=== PATIENT | female | born 2005 | race Caucasian/White ===

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

== ENCOUNTER → 2025-01-02 09:12 | Outpatient (BNVA) | payer OTHER, SELFPAY | PROVIDERS: Family Provider Family Medicine; PCP Family Medicine; Visit Provider Nurse Practitioner Women's Health | DX: Z34.90 Encounter for supervision of normal pregnancy, unspecified, unspecified trimester (principal) | CPT/HCPCS: 84315 ==

== ENCOUNTER → 2025-01-30 09:42 | Outpatient (BNVA) | payer SELFPAY | PROVIDERS: Family Provider Family Medicine; PCP Family Medicine; Visit Provider Obstetrics & Gynecology | DX: Z36.9 Encounter for antenatal screening, unspecified (principal) | CPT/HCPCS: 76805 ==

== ENCOUNTER → 2025-02-06 10:24 | Outpatient (BNVA) | payer OTHER, SELFPAY | PROVIDERS: Family Provider Family Medicine; PCP Family Medicine; Visit Provider Obstetrics & Gynecology | DX: Z34.90 Encounter for supervision of normal pregnancy, unspecified, unspecified trimester (principal) | CPT/HCPCS: 84315 ==

== ENCOUNTER → 2025-02-27 13:15 | Outpatient (BNVA) | payer OTHER, SELFPAY | PROVIDERS: Family Provider Family Medicine; PCP Family Medicine; Visit Provider Nurse Practitioner Women's Health | DX: Z34.90 Encounter for supervision of normal pregnancy, unspecified, unspecified trimester (principal) | CPT/HCPCS: 84315 ==

== ENCOUNTER → 2025-03-27 10:26 | Outpatient (BNVA) | payer OTHER, SELFPAY | PROVIDERS: Family Provider Family Medicine; PCP Family Medicine; Visit Provider Obstetrics & Gynecology | DX: Z34.90 Encounter for supervision of normal pregnancy, unspecified, unspecified trimester (principal) | CPT/HCPCS: 82950; 84315; 85025 ==

== ENCOUNTER → 2025-04-10 14:23 | Outpatient (BNVA) | payer OTHER, SELFPAY | PROVIDERS: Family Provider Family Medicine; PCP Family Medicine; Visit Provider Obstetrics & Gynecology | DX: Z34.90 Encounter for supervision of normal pregnancy, unspecified, unspecified trimester (principal) | CPT/HCPCS: 84315 ==

== ENCOUNTER → 2025-04-24 09:05 | Outpatient (BNVA) | payer OTHER, SELFPAY | PROVIDERS: Family Provider Family Medicine; PCP Family Medicine; Visit Provider Obstetrics & Gynecology | DX: Z34.90 Encounter for supervision of normal pregnancy, unspecified, unspecified trimester (principal) | CPT/HCPCS: 84315 ==

== ENCOUNTER 2025-04-30 18:38 | Outpatient (CLI) | payer OTHER, SELFPAY ==
[2025-04-30 18:58] VITALS: BMI 25.3
[2025-04-30 19:06] VITALS: BP 128/75; PULSE 82
[2025-04-30 19:21] VITALS: BP 130/72; PULSE 90
[2025-04-30 19:39] VITALS: TEMP 35.7
[2025-04-30 19:40] VITALS: BP 130/72; PULSE 91; RESP 17; TEMP 36.1; O2SAT 98
== END 2025-04-30 19:42 | disposition home or self-care (01) ==
LOC: OPOB 18:42 → OBGYN 18:43
PROVIDERS: Family Provider Family Medicine; PCP Family Medicine; Visit Provider Obstetrics & Gynecology
DX: O36.8190 Decreased fetal movements, unspecified trimester, not applicable or unspecified (principal); Z3A.00 Weeks of gestation of pregnancy not specified
CPT/HCPCS: 59025; 99211

== ENCOUNTER → 2025-05-08 08:03 | Outpatient (BNVA) | payer OTHER, SELFPAY | PROVIDERS: Family Provider Family Medicine; PCP Family Medicine; Visit Provider Nurse Practitioner Women's Health | DX: Z34.90 Encounter for supervision of normal pregnancy, unspecified, unspecified trimester (principal) | CPT/HCPCS: 84315 ==

== ENCOUNTER 2025-05-17 19:00 | Inpatient (IN) | payer OTHER, SELFPAY ==
[2025-05-17] VITALS (67 sets, daily range): BP systolic 118–153; BP diastolic 63–93; PULSE 71–106; RESP 16–18; TEMP 36.2–37.1; O2SAT 100; BMI 26.2
[2025-05-17 09:17] LABS: Hematocrit 34.8 % (36-47); Hemoglobin 12.60 g/dL (12.4-14.8); Mean Corpuscular HGB Conc 36.2 g/dL (30-55); Mean Corpuscular Hemoglobin 31.7 pg (27-33); Mean Corpuscular Volume 87.7 fl (85-98); Nucleated Red Blood Cells % 0 %; Platelet Count 214 10^3/cmm (157-399); Red Blood Count 3.97 10^6/uL (3.85-5.65); White Blood Count 14.07 10^3/uL (4.5-13.0)
[2025-05-17] MEDS: penicillin g potassium 5,000,000 UNIT in sodium chloride 0.9% (plus) 100 ML 100 UNIT IV (09:38)
[2025-05-17] MEDS: PENICILLIN G POTASSIUM 2,500,000 UNIT/50 ML BAG 50 UNIT IV ×3 (13:07→22:20)
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
[2025-05-17] MEDS: oxytocin 30 UNIT/500 ML BAG IV (13:21)
[2025-05-17] MEDS: fentaNYL 50 mcg/mL INJ 2mL IVP (13:25)
[2025-05-17] MEDS: ROPivacaine premix 200 MG/100 ML PREMIX 13 MG EPIDURAL ×2 (14:45→22:23)
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
[2025-05-17] MEDS: ondansetron 2 mg/ML SDV 2 mL 4 MG IVP (15:56)
--- NOTE | 2025-05-17 23:19 | P.PCNOB_ITS ---
Delivery Note: Date of delivery: May 17, 2025 Pre-delivery diagnoses: 19-year-old 1 at 35 weeks estima alexander gestational age presenting with spontaneous rupture of membranes Post-delivery diagnoses: Status post vacuum-assisted vaginal delivery Procedure: Vacuum-assisted vaginal delivery Delivering Physician: Corky Spencer Estimated blood loss (mL): 150 Pre-Delivery Course: The patient presented to the hospital with spontaneous rupture of membranes. After waiting for about 7 hours she made some change but was still only 3 cm dilated. The decision was made to proceed with Pitocin. An epidural was placed. She then progressed to complete without difficulty. When the baby was complete and 0 station the patient began pushing. After pushing for about an hour, the began having significant decelerations. She then had persistent decelerations in the 60s and 70s that persisted over about 3-4 contractions. Specific decision was made to assist with the vacuum. The vacuum was used on 3 consecutive contractions. I used the Kiwi with a hard martinez. Each time the vacuum was placed the Kiwi handle was pumped up to the green zone. There were no pop-off's. I discussed with the parents the pros and cons of the vacuum including the risk of a subgaleal bleed. Delivery: DELIVERY: The patient progressed to complete without difficulty. She delivered a female with a weight of 5 pound 13 ounces with Apgars of 8, 8 with the assist of the vacuum.. The baby was delivered from the JOSE ENRIQUE position. The baby's mouth and nose were suctioned at the site of the perineum. The baby was then completely delivered and placed on the mother's abdomen. The cord was then clamped and cut. There was no nuchal cord. There was no meconium. The ashly centa and 3 vessel cord were delivered intact shortly thereafter. The perineum and vaginal vault were carefully examined. Lacerations were noted in the vaginal wall both in the posterior midline as well as extending onto the left vaginal wall. These continued to bleed and were reapproximated using 3-0 Vicryl in a separate [id number] stitches. Both the mother and the baby were in stable condition. Post-Delivery Status: Good History History History 1 Term 1 Miscarriages/Ectopic Living Children 1 A&P Assessment and plan 1. 35 weeks gestation of : I anticipate routine care. 2. Vacuum-assisted vaginal delivery: PDMP PDMP Reviewed: Not Reviewed Coding Level of Care Code Acute Code for Chg Fwd Diagnoses 35 weeks gestation of Z3A.35 Vacuum-assisted vaginal delivery Z37.9
[2025-05-18] VITALS (16 sets, daily range): BP systolic 118–142; BP diastolic 64–88; PULSE 69–113; RESP 16; TEMP 36.7–37.2
[2025-05-18] MEDS: benzocaine-menthol 78 gm Canister 1 SPRAY TOPICAL (06:36)
[2025-05-18] MEDS: PRENATAL VIT NO.130/IRON/FOLIC 1 EACH TABLET PO (06:37)
--- NOTE | 2025-05-18 10:49 | P.PN_ITS ---
SENIOR BUSINESS CONSULTANT Subjective 2 Subjective: Interval history: The patient has done well. Her bleeding has been within normal limits. Her pain is well-controlled. She is breast-feeding well. Labor: Station: 0 Amniotic Membrane Status: Ruptured Monitor Mode: External Contraction Pattern: Regular Vitals/I&O/Wt Last Vital Signs Temp 98.0 F 05/18/25 08:42 Pulse 74 05/18/25 08:42 Resp 16 05/18/25 08:42 BP 126/74 05/18/25 08:42 Pulse Ox 100 05/17/25 14:58 O2 Del Method Room Air 05/17/25 09:00 05/17/25 05/18/25 05/18/25 22:59 06:59 14:59 Intake Total 1217.001 / 1971.867 Balance 1217.001 / 1971.867 Weight last 48 hrs Weight 167 lb 8 oz Physical Exam 2 Narrative: The patient is alert. She appears comfortable. Her heart has a regular rate and rhythm with no murmurs appreciated. Lungs are clear to auscultation bilaterally. Her fundus is firm and below the umbilicus. Urinary Catheter Management: Hensley: Cath Placed During This Visit: yes Reason for Continuing Indwelling Catheter: Other Urinary Catheter Date of Insertion: 05/17/25 Urinary Catheter Time of Insertion: 15:15 Data 05/18/25 11:00 A&P Assessment and plan 1. 35 weeks gestation of : The patient is doing well. I anticipate she will have routine care. 2. Status post vacuum-assisted vaginal delivery: PDMP PDMP Reviewed: Not Reviewed Attestations 2 Medical Necessity Statement*: Routine care Coding Level of Care Code Acute Code for Chg Fwd Diagnoses 35 weeks gestation of Z3A.35 Status post vacuum-assisted vaginal delivery Z87.59
[2025-05-18 11:24] LABS: Hematocrit 27.6 % (36-47); Hemoglobin 10.00 g/dL (12.4-14.8); Mean Corpuscular HGB Conc 36.2 g/dL (30-55); Mean Corpuscular Hemoglobin 32.1 pg (27-33); Mean Corpuscular Volume 88.5 fl (85-98); Platelet Count 176 10^3/cmm (157-399); Red Blood Count 3.12 10^6/uL (3.85-5.65); White Blood Count 17.24 10^3/uL (4.5-13.0)
[2025-05-19] MEDS: PRENATAL VIT NO.130/IRON/FOLIC 1 EACH TABLET PO (05:16)
[2025-05-19 05:21] VITALS: BP 130/71; TEMP 36.7
--- NOTE | 2025-05-19 08:00 | ANE.PACU2 ---
Inpatient post-anesthesia follow up: Airway intact: Yes Vital signs: Temperature 97.7 F Pulse Rate 74 Respiratory Rate 15 Blood Pressure 116/71 Pulse Oximetry 98 Oxygen Delivery Me thod Room Air Oxygen Flow Rate Fraction of Inspir ed Oxygen Hydration adequate: Yes Nausea and vomiting: No Pain level: 1 Mental status: Baseline Epidural Start/End: Epidural Start Date: 05/17/25 Epidural Start Time: 14:35 Epidural End Date: 05/18/25 Epidural End Time: 02:52
--- NOTE | 2025-05-19 09:34 | PM.OBGYDC ---
Discharge Providers BI MANAGER Date of Admission: 05/17/25 19:00 Date of Discharge: 05/19/25 Attending Provider at Admission: Corky Spencer MD Attending Provider at Discharge: Corky Spencer MD Primary Care Provider: Thai Allison DO Diagnoses at Discharge Discharge Diagnosis 1. 35 weeks gestation of : 2. Status post vacuum-assisted vaginal delivery: Reason for Visit Reason for Visit: SROM Hospital Course Hospital Course The patient is a 19-year-old 1 who presented to the hospital with spontaneous rupture membranes. She is allowed to labor for about 6 hours. She made minimal progress and the decision was made to proceed with Pitocin augmentation. She then progressed to complete. Due to persisting bradycardia, the decision was made to assist with the vacuum. The baby then delivered quickly. The patient had an unremarkable delivery otherwise. Her course was unremarkable as well. Her bleeding was within normal limits. Her pain was well-controlled. Breast-feeding was initially difficult but she did much better prior to discharge. There were no further concerns. Information Peripartum Data: Infant Delivery Method: Vaginal Physical Exam Narrative: The patient is alert. She appears comfortable. Her heart has a regular rate and rhythm. Lungs are clear to auscultation bilaterally. Her fundus is firm and below the umbilicus. Urinary Catheter Management: Hensley: Cath Placed During This Visit: yes Reason for Continuing Indwelling Catheter: Other Urinary Catheter Date of Insertion: 05/17/25 Urinary Catheter Time of Insertion: 15:15 History History History 1 Term 1 Miscarriages/Ectopic Living Children 1 Discharge Data Studies Completed and Pending Laboratory Results WBC 17.24 10^3/uL (4.5-13.0) H 05/18/25 11:00 RBC 3.12 10^6/uL (3.85-5.65) L 05/18/25 11:00 Hgb 10.00 g/dL (12.4-14.8) L 05/18/25 11:00 Hct 27.6 % (36-47) L 05/18/25 11:00 MCV 88.5 fl (85-98) 05/18/25 11:00 MCH 32.1 pg (27-33) 05/18/25 11:00 MCHC 36.2 g/dL (30-55) 05/18/25 11:00 RDW 11.9 % (12.1-15.1) L 05/18/25 11:00 Plt Count 176 10^3/cmm (157-399) 05/18/25 11:00 MPV 10.5 fL (7.4-10.4) H 05/18/25 11:00 Neut % (Auto) 67.3 % 05/17/25 09:00 Lymph % (Auto) 23.7 % 05/17/25 09:00 Becker % (Auto) 5.6 % 05/17/25 09:00 Eos % (Auto) 0.8 % 05/17/25 09:00 Baso % (Auto) 0.4 % 05/17/25 09:00 Neut # (Auto) 9.47 10^3/uL (1.8-8.0) H 05/17/25 09:00 Lymph # (Auto) 3.3 10^3/uL (1.5-6.5) 05/17/25 09:00 Becker # (Auto) 0.8 10^3/uL (0.2-0.9) 05/17/25 09:00 Eos # (Auto) 0.1 10^3/uL (0.0-0.8) 05/17/25 09:00 Baso # (Auto) 0.1 10^3/uL (0.0-0.1) 05/17/25 09:00 Nucleated RBC % (auto) 0 % 05/17/25 09:00 Nucleated RBCs # 0.0 /100WBC 05/17/25 09:00 Blood Type B Positive 05/17/25 09:00 Rho(D) Type Rh positive 05/17/25 09:00 Antibody Screen Negative 05/17/25 09:00 Vitals Last Vital Signs Temp 98.1 F 05/19/25 05:21 Pulse 69 05/18/25 17:01 Resp 16 05/18/25 17:01 BP 130/71 05/19/25 05:21 Pulse Ox 100 05/17/25 14:58 O2 Del Method Room Air 05/17/25 09:00 Results Labs OB ([facility]): Obstetrics US 05/10/25 Blood Type B Positive 05/17/25 Antibody Screen Negative 05/17/25 Hct, (36-47) 27.6 % L 05/18/25 Hgb, (12.4-14.8) 10.00 g/dL L 05/18/25 Rho(D) Type Rh positive 05/17/25 Plt Count, (157-399) 176 10^3/cmm 05/18/25 Hep Bs Antigen, (Nonreactive) Non-reactive 11/28/24 Hepatitis C Antibody, (Nonreactive) Non-reactive 11/28/24 Rubella IgG Antibody, (0.0-10.0) 348.6 IU/mL H 11/28/24 RPR, (Nonreactive) Nonreactive 11/28/24 HIV 1&2 Ab & HIV 1 Ag, (Non-Reactiv) Non-reactive 11/28/24 TSH, (0.27-4.20) 0.41 uIU/mL 11/28/24 Glucose 1 Hr 50 gm, (85-140) 93 mg/dL 03/27/25 Ser , Semi-Qnt 413.00 mIU/mL 10/12/24 HCG, Qual, (Negative) Positive H 10/10/24 Urine Opiates Screen, (Negative) Negative ng/mL 11/28/24 Ur Barbiturates Screen, (Negative) Negative ng/mL 11/28/24 Ur Phencyclidine Scrn, (Negative) Negative ng/mL 11/28/24 Ur Amphetamines Screen, (Negative) Negative ng/mL 11/28/24 U Benzodiazepines Scrn, (Negative) Negative ng/mL 11/28/24 Urine Cocaine Screen, (Negative) Negative ng/mL 11/28/24 U Marijuana (THC) Screen, (Negative) Negative ng/mL 11/28/24 Micro Urine Specimen 11/28/24 Discharge Plan Discharge Patient Disposition: Home Condition: Stable Prescriptions: New ibuprofen 800 mg Tablet 800 mg PO TID Qty: 45 0RF Continued Gummies PO Patient Comments: x2 daily Discharge Order = DC NOW: Discharge Order (Routine); Ordered 05/19/25 Ordered By: Corky Spencer Referrals: Corky Spencer MD [Physician, Family Practice] Jagjit Rashid MD [Physician, BI MANAGER] - 6 Weeks Discharge Diet: Usual diet Patient Instructions: Depression (DC), Bleeding (DC), Hemorrhage (DC), OB Discharge Report, OB Food/Drug Interaction Guide, Opioid Safety, OB Home Care, OB Proud Parent Packet, OB Vaginal Deliveries, Patient Portal & Valente Instructions Discharge Attestations BI MANAGER Time Spent in Discharge Care*: less than 30 min Coding Level of Care Code Acute Code for Chg Fwd Diagnoses 35 weeks gestation of Z3A.35 Status post vacuum-assisted vaginal delivery Z87.59
[2025-05-19 09:57] VITALS: BP 116/71; PULSE 74; RESP 15; TEMP 36.5; O2SAT 98
== END 2025-05-19 10:40 | disposition home or self-care (01) | DRG 805 ==
LOC: OPOB 23:24 → OBGYN 23:24
PROVIDERS: Admitting Provider Family Medicine; Family Provider Family Medicine; PCP Family Medicine; Visit Provider Family Medicine
DX: O42.013 Preterm premature rupture of membranes, onset of labor within 24 hours of rupture, third trimester (principal); O60.14X0 Preterm labor third trimester with preterm delivery third trimester, not applicable or unspecified; Z37.0 Single live birth; O71.4 Obstetric high vaginal laceration alone; O76 Abnormality in fetal heart rate and rhythm complicating labor and delivery; O99.824 Streptococcus B carrier state complicating childbirth; Z3A.35 35 weeks gestation of pregnancy
CPT/HCPCS: 36415; 51702; 59025; 59409; 83986; 85025; 85027; 86850; 86900; 96374; 99211; J2405; J2540; J2590; J2795; J3010; J7030; J7121; J9999